=== PATIENT | male | born 1950 | race Two or more races ===

== ENCOUNTER 2018-03-16 10:53 | Outpatient (CLI) | payer OTHER | END 2018-03-16 10:56 | disposition home or self-care (01) | LOC: RAD 10:53 | DX: R14.0 Abdominal distension (gaseous) (principal) ==

== ENCOUNTER 2020-09-10 09:50 | Outpatient (CLI) | payer OTHER | END 2020-09-10 10:09 | disposition home or self-care (01) | LOC: RAD 09:50 | PROVIDERS: ATTEND Ophthalmology | DX: Z98.41 Cataract extraction status, right eye (principal) ==

== ENCOUNTER 2021-07-30 13:19 | Emergency (ER) | payer OTHER ==
[~2021-07-30] VITALS: Ht 177.8 cm; Wt 91.6 kg
[2021-07-30] MEDS ORDERED: ZYLOPRIM100 M1 PO (13:31)
[2021-07-30] MEDS ORDERED: FENOFIBRATE150 MG PO (13:32)
[2021-07-30] MEDS ORDERED: SIMETHICONE80 MG (13:32)
[2021-07-30] MEDS ORDERED: NORFLEX100MG PO (13:32)
[2021-07-30] MEDS ORDERED: TOPROL XL100 M1 PO (13:32)
[2021-07-30] MEDS ORDERED: TRAMADOL HCL50 MG PO (13:32)
[2021-07-30] MEDS ORDERED: JENTADUETO 2.51 EAC2 PO (13:33)
[2021-07-30] MEDS ORDERED: AMLODIPINE-OLM1 EAC3 PO (13:33)
[2021-07-30] MEDS ORDERED: GLIMEPIRIDE2 M1 PO (13:33)
== END 2021-07-30 16:54 | disposition home or self-care (01) ==
LOC: ER 13:19
DX: M54.32 Sciatica, left side (principal); I10 Essential (primary) hypertension; E11.9 Type 2 diabetes mellitus without complications; Z79.899 Other long term (current) drug therapy; E78.00 Pure hypercholesterolemia, unspecified

== ENCOUNTER 2022-02-09 09:45 | Inpatient (IN) | payer OTHER ==
[~2022-02-09] VITALS: Ht 177.8 cm; Wt 90.7 kg
[~2022-02-09 09:45] MED LIST: AMLODIPINE-OLM1 EAC3 PO; FENOFIBRATE150 MG PO; GLIMEPIRIDE2 M1 PO; JENTADUETO 2.51 EAC2 PO; NORFLEX100MG PO; SIMETHICONE80 MG; TOPROL XL100 M1 PO; TRAMADOL HCL50 MG PO; ZYLOPRIM100 M1 PO
[2022-02-14] MEDS ORDERED: ALLOPURINOL300 MG (15:42)
[2022-02-14] MEDS ORDERED: BRIMONIDINE TART5 M1 (15:42)
[2022-02-14] MEDS ORDERED: GABAPENTIN300 M2 (15:42)
[2022-02-14] MEDS ORDERED: DOXAZOSIN MESYLA2 MG (15:42)
[2022-02-14] MEDS ORDERED: AMLODIPINE-BEN1 EAC1 (15:42)
[2022-02-14] MEDS ORDERED: SIMVASTATIN40 MG (15:42)
[2022-02-17] MEDS ORDERED: ULTRACET PO (10:36)
[2022-02-17] MEDS ORDERED: PEPCID AC20 MG PO (10:38)
[2022-02-17] MEDS ORDERED: INTESTINEX680 M1 PO (10:39)
== END 2022-02-17 12:47 | disposition home or self-care (01) | DRG 331 ==
LOC: SURH 02-14 06:05 → O/R 02-14 06:05 → SURG 02-14 07:00 → SURH 02-14 13:42
PROVIDERS: ADMIT Surgery; ATTEND Surgery
PROC: 07BB4ZZ Excision of Mesenteric Lymphatic, Percutaneous Endoscopic Approach (ICD-10-PCS; 2022-02-14)
PROC: 0DBE4ZZ Excision of Large Intestine, Percutaneous Endoscopic Approach (ICD-10-PCS; 2022-02-14)
PROC: 0DTF4ZZ Resection of Right Large Intestine, Percutaneous Endoscopic Approach (ICD-10-PCS; principal; 2022-02-14 07:00)
DX: C18.3 Malignant neoplasm of hepatic flexure (principal); Z20.822 Contact with and (suspected) exposure to COVID-19

== ENCOUNTER → 2022-03-11 07:57 | Outpatient (CLI) | payer OTHER ==
[~2022-03-11 07:57] MED LIST changes: +ALLOPURINOL300 MG; +AMLODIPINE-BEN1 EAC1; +BRIMONIDINE TART5 M1; +DOXAZOSIN MESYLA2 MG; +GABAPENTIN300 M2; +INTESTINEX680 M1 PO; +PEPCID AC20 MG PO; +SIMVASTATIN40 MG; +ULTRACET PO
== END | disposition home or self-care (01) ==
LOC: NUCLEAR 07:57
PROVIDERS: ATTEND Internal Medicine Gastroenterology
DX: C18.9 Malignant neoplasm of colon, unspecified (principal)
CPT/HCPCS: 78816; A9552

== ENCOUNTER 2022-05-19 12:08 | Outpatient (CLI) | payer OTHER | END 2022-05-19 12:10 | disposition home or self-care (01) | LOC: NUCLEAR 12:08 | PROVIDERS: ATTEND Orthopaedic Surgery | DX: M81.0 Age-related osteoporosis without current pathological fracture (principal) ==

== ENCOUNTER → 2022-05-31 08:19 | Outpatient (CLI) | payer OTHER | END | disposition home or self-care (01) | LOC: LAB 08:19 | PROVIDERS: ATTEND Internal Medicine Hematology & Oncology | DX: C18.2 Malignant neoplasm of ascending colon (principal); I10 Essential (primary) hypertension; E11.9 Type 2 diabetes mellitus without complications; E78.2 Mixed hyperlipidemia ==

== ENCOUNTER 2022-06-22 10:34 | Outpatient (CLI) | payer OTHER | END 2022-06-22 10:44 | disposition home or self-care (01) | LOC: NUCLEAR 10:34 | PROVIDERS: ATTEND Internal Medicine | DX: I11.9 Hypertensive heart disease without heart failure (principal); E78.2 Mixed hyperlipidemia; E11.9 Type 2 diabetes mellitus without complications; I50.9 Heart failure, unspecified ==

== ENCOUNTER 2023-02-10 07:51 | Outpatient (CLI) | payer OTHER | END 2023-02-10 07:52 | disposition home or self-care (01) | LOC: NUCLEAR 07:51 | PROVIDERS: ATTEND Internal Medicine Hematology & Oncology | DX: C18.2 Malignant neoplasm of ascending colon (principal); I10 Essential (primary) hypertension; E11.9 Type 2 diabetes mellitus without complications; E78.2 Mixed hyperlipidemia; I25.119 Atherosclerotic heart disease of native coronary artery with unspecified angina pectoris; I71.43 Infrarenal abdominal aortic aneurysm, without rupture; D63.1 Anemia in chronic kidney disease; N18.4 Chronic kidney disease, stage 4 (severe); M54.30 Sciatica, unspecified side | CPT/HCPCS: 78815; A9552 ==

== ENCOUNTER 2023-05-15 08:30 | Outpatient (CLI) | payer OTHER | END 2023-05-15 08:36 | disposition home or self-care (01) | LOC: TOM 08:30 | PROVIDERS: ATTEND Internal Medicine Hematology & Oncology | DX: C18.2 Malignant neoplasm of ascending colon (principal); I10 Essential (primary) hypertension; E11.9 Type 2 diabetes mellitus without complications; E78.2 Mixed hyperlipidemia; I25.119 Atherosclerotic heart disease of native coronary artery with unspecified angina pectoris; I71.43 Infrarenal abdominal aortic aneurysm, without rupture; D63.1 Anemia in chronic kidney disease; N18.4 Chronic kidney disease, stage 4 (severe); M54.30 Sciatica, unspecified side; C77.1 Secondary and unspecified malignant neoplasm of intrathoracic lymph nodes ==

== ENCOUNTER 2023-11-19 13:41 | Inpatient (IN) | payer OTHER ==
[~2023-11-19] VITALS: Ht 177.8 cm; Wt 86.2 kg
--- NOTE | 2023-11-19 13:52 | NUR ---
SE RECIBE PTE ALERTA Y ORIENTADO X3. EN AMBULANCIA, PARAMEDICOS REFIEREN QUE AL RECOGER PTE EN RAZO HOGAR EL MISMO SE ENCONTRABA DESORIENTADO CON DXT EN 40MG/DL. AL MOMENTO DE RECIBIR AMBULANCIA PTE CON DXT EN 111. EL MISMO REFIERE NO SENTIRSE MAREADO. SE MIDEN S/V Y SE UBICA EN OBSERVACION.
[2023-11-19] MEDS ORDERED: ENALAPRILAT DIHYDRATE 1.25 MG/ML VIAL IV ONE ×2 (14:15→14:29)
[2023-11-19 14:23] LABS: HEMATOCRIT 33.9 % (39.0-48.0); HEMOGLOBIN 11.4 g/dL (13-16.00); MEAN CELL VOLUME 91.1 fL (80.0-100.00); MEAN CORPUSCULAR HEMOGLOBIN 30.7 pg (27.00-32.0); MEAN CORPUSCULAR HGB CONC 33.7 g/dl (32.0-36.0); PLATELET COUNT 239 K/uL (150-450); RED BLOOD COUNT 3.72 M/uL (4.00-6.00); RED CELL DISTRIBUTION WIDTH 13.3 % (11.5-14.5)
--- NOTE | 2023-11-19 14:24 | NUR ---
SE ORIENTA A PTE SOBRE TX MEDICO Y EL MISMO REFIERE ENTENDER. SE RECOLECTAN MUESTRAS DE LAB Y SE REALIZA EKG JAYCEE ORDEN MEDICA BAJO MEDIDAS ASEPTICAS.
[2023-11-19 14:40] LABS: ALBUMIN 3.5 gm/dL (3.4-5.0); BILIRUBIN TOTAL 0.23 mg/dL (0.3-1.2); CALCIUM 8.6 mg/dL (8.5-10.1); CREATININE SERUM 3.87 mg/dL (0.70-1.30); GFR 15.41; GLOBULINA 3.5 G/DL (2.4-3.5); POTASSIUM 4.09 mEq/L (3.5-5.1)
[2023-11-19 15:24] LABS: URINE APPEARANCE Clear; URINE BILIRRUBIN Negative (NEGATIVE); URINE BLOOD Negative; URINE COLOR Yellow; URINE GLUCOSE Negative (NEGATIVE); URINE KETONE Negative (NEGATIVE); URINE LEUKOCYTE Negative; URINE NITRATE Negative; URINE UROBILINOGEN 0.2 E.U./dl
[2023-11-19 15:29] LABS: URINE BACTERIA 127.2 uL (0.0-1933); URINE WBC 2.7 uL (0.0-23.2)
[2023-11-19 15:37] LABS: URINE CAST 0.61 uL (0.0-1.40); URINE PROTEIN 100 (NEGATIVE); URINE RBC 0.3 uL (0.0-20.8)
[2023-11-19] MEDS ORDERED: DEXTROSE 50 % IN WATER 0.5 G/ML DISP.SYRIN IV ONE (16:07)
[2023-11-19] MEDS ORDERED: DEXTROSE 50 % IN WATER 0.5 G/ML VIAL IV ONE (16:15)
--- NOTE | 2023-11-19 16:18 | NUR ---
SE CHRISTOPHER DXT A PACIENTE EL CUAL ARROJA 41mg/dL. SE ADMINISTRA HYPERTONICA JAYCEE PROTOCOLO Y ORDEN VERBAL MEDICA DE DE TURNO DRA. HINOJOSA.
[2023-11-19 18:25] VITALS: BP 160/70
[2023-11-19] MEDS ORDERED: AMLODIPINE BESYLATE 10 MG TABLET PO SCH (19:02)
[2023-11-19] MEDS ORDERED: DEXTROSE 5 %-0.45 % SOD CHLORD 1,000 ML IV SCH (19:15)
[2023-11-19] MEDS ORDERED: DEXTROSE 50 % IN WATER 0.5 G/ML DISP.SYRIN IV PRN (19:15)
[2023-11-19] MEDS ORDERED: INSULIN LISPRO 1,000 UNIT/10 ML UNITS SUBCUTANEO PRN (19:15)
[2023-11-19] MEDS ORDERED: ACETAMINOPHEN 500 MG GEL..CAP PO PRN (19:15)
[2023-11-19 22:16] VITALS: BP 178/86; O2SAT 99
[2023-11-19 23:28] LABS: ABG PH 7.388 (7.35-7.45)
[2023-11-19 23:29] LABS: ABG PO2 84.5 mmHg (80-100)
[2023-11-19 23:31] LABS: BASE EXCESS -5.4 mmol/l; BICARBONATE 18.3 mmol/l (23-25); Tco2 19.2 mmol/l; o2 21 %
[2023-11-19 23:32] LABS: allen test SATISFACTORY; puncture site RADIAL LEFT
[2023-11-20] VITALS: BP 157/78; O2SAT 100
[2023-11-20 08:04] VITALS: BP 170/87; O2SAT 98
[2023-11-20 08:42] LABS: MAGNESIUM 2.2 mg/dL (1.8-2.4); PHOSPHOROUS 3.4 mg/dL (2.5-4.9)
[2023-11-20] MEDS ORDERED: FAMOTIDINE/PF 20 MG in 0.9 % SODIUM CHLORIDE 8 ML IV PUSH SCH (09:00)
[2023-11-20 16:00] VITALS: BP 186/86; O2SAT 98
[2023-11-20] MEDS ORDERED: hydrALAZINE HCL 20 MG VIAL IV PRN (19:00)
[2023-11-20 21:01] VITALS: BP 183/97
[2023-11-21] VITALS: BP 163/78; O2SAT 98
[2023-11-21 03:35] VITALS: BP 160/84
[2023-11-21 07:31] LABS: ALBUMIN 3.5 gm/dL (3.4-5.0); BILIRUBIN TOTAL 0.55 mg/dL (0.3-1.2); CALCIUM 9.2 mg/dL (8.5-10.1); CREATININE SERUM 3.2 mg/dL (0.70-1.30); GFR 19.19; GLOBULINA 3.5 G/DL (2.4-3.5); POTASSIUM 4.63 mEq/L (3.5-5.1); T4 FREE 0.93 NG/ML (0.76-1.46); TSH 1.1 uIU/mL (0.358-3.74)
[2023-11-21] MEDS ORDERED: hydrALAZINE HCL 50 MG TABLET PO SCH (09:00)
[2023-11-21 09:36] VITALS: BP 157/73; O2SAT 98
[2023-11-21 16:00] VITALS: BP 189/81; O2SAT 100
[2023-11-22] VITALS: BP 169/82; O2SAT 98
[2023-11-22 08:00] VITALS: BP 151/81; O2SAT 97
[2023-11-22 09:10] LABS: % FREE PSA 56.3 % (.); free psa 0.9 ng/mL; total psa 1.6 ng/mL (0.0-4.0)
[2023-11-22 16:32] VITALS: BP 144/70; O2SAT 100
[2023-11-23 00:54] VITALS: BP 167/92; O2SAT 98
[2023-11-23 07:59] LABS: ALBUMIN 3.5 gm/dL (3.4-5.0); BILIRUBIN TOTAL 0.44 mg/dL (0.3-1.2); CALCIUM 9.3 mg/dL (8.5-10.1); CREATININE SERUM 3.46 mg/dL (0.70-1.30); GFR 17.53; GLOBULINA 3.5 G/DL (2.4-3.5); POTASSIUM 4.43 mEq/L (3.5-5.1)
[2023-11-23] MEDS ORDERED: INSULIN NPH HUM/REG INSULIN HM 1,000 UNIT/10 ML UNITS SUBCUTANEO SCH (08:00)
[2023-11-23 08:03] VITALS: BP 159/83; O2SAT 98
[2023-11-23 16:00] VITALS: BP 169/80; O2SAT 97
[2023-11-23] MEDS ORDERED: DOXAZOSIN MESYLATE 2 MG TABLET PO SCH (21:00)
[2023-11-24 00:45] VITALS: BP 165/85; O2SAT 98
[2023-11-24 08:00] VITALS: BP 145/75; O2SAT 100
[2023-11-24] MEDS ORDERED: DOXAZOSIN MESYLA2 MG PO (11:15)
[2023-11-24] MEDS ORDERED: AMLODIPINE BESY10 MG PO (11:15)
[2023-11-24] MEDS ORDERED: TRADJENTA5 MG PO (11:15)
[2023-11-24] MEDS ORDERED: HYDRALAZINE HCL50 MG PO (11:15)
== END 2023-11-24 13:55 | disposition home or self-care (01) | DRG 683 ==
LOC: ER 13:41 → SEC-K 19:14 → SURH 19:14
PROVIDERS: General Practice; Internal Medicine Nephrology; ADMIT Internal Medicine; ATTEND Internal Medicine
PROC: BT4JZZZ Ultrasonography of Kidneys and Bladder (ICD-10-PCS; principal; 2023-11-20)
DX: N17.9 Acute kidney failure, unspecified (principal); C18.9 Malignant neoplasm of colon, unspecified; E86.0 Dehydration; N18.4 Chronic kidney disease, stage 4 (severe); E11.649 Type 2 diabetes mellitus with hypoglycemia without coma; Z79.4 Long term (current) use of insulin; E11.22 Type 2 diabetes mellitus with diabetic chronic kidney disease; E78.5 Hyperlipidemia, unspecified; I12.9 Hypertensive chronic kidney disease with stage 1 through stage 4 chronic kidney disease, or unspecified chronic kidney disease

== ENCOUNTER 2024-03-01 07:59 | Outpatient (CLI) | payer OTHER ==
[~2024-03-01 07:59] MED LIST changes: +AMLODIPINE BESY10 MG PO; +DOXAZOSIN MESYLA2 MG PO; +HYDRALAZINE HCL50 MG PO; +TRADJENTA5 MG PO
== END 2024-03-01 08:00 | disposition home or self-care (01) ==
LOC: NUCLEAR 07:59
PROVIDERS: ATTEND Internal Medicine Hematology & Oncology
DX: C18.2 Malignant neoplasm of ascending colon (principal); C77.1 Secondary and unspecified malignant neoplasm of intrathoracic lymph nodes
CPT/HCPCS: 78816; A9552

== ENCOUNTER 2024-10-29 20:58 | Emergency (ER) | payer OTHER ==
[~2024-10-29] VITALS: Ht 177.8 cm; Wt 79.4 kg
[2024-10-29] MEDS ORDERED: AVAPRO150 MG PO (21:13)
[2024-10-29] MEDS ORDERED: CARDURA1 MG PO (21:13)
[2024-10-29] MEDS ORDERED: TOPROL XL25 M1 PO (21:13)
[2024-10-29] MEDS ORDERED: 0.9 % SODIUM CHLORIDE 1,000 ML IV STA (22:03)
[2024-10-29 23:12] LABS: BASO % 0.4 % (0.1-1.2); EOS # 0.02 (0.04-0.54); EOS % 0.1 % (0.7-7.0); LYMPH # 0.70 (1.18-3.74); LYMPH % 5.1 % (19.3-53.1); MEAN PLATELET VOLUME 10.20 fl (9.4-12.4); MONO # 1.23 (0.24-0.82); MONO % 8.9 % (4.7-12.5); NEUT # 11.74 (1.56-6.13); NEUT % 85.1 % (34.0-71.1); RED CELL DISTRIBUTION WIDTH 12.6 % (11.6-14.4)
[2024-10-29] MEDS ORDERED: CEFTRIAXONE SODIUM 2,000 MG VIAL IV STA (23:24)
[2024-10-29] MEDS ORDERED: CEFTRIAXONE SODIUM 2,000 MG VIAL ONE (23:30)
[2024-10-29 23:33] LABS: ALT/SGPT 63.0 U/L (12-78); AST/SGOT 89.0 U/L (15-37); BILIRUBIN TOTAL 0.8 mg/dL (0.3-1.2); BUN CREA RATIO 15.0 (7.0-25.0); CREATININE SERUM 3.01 mg/dL (0.70-1.30); GFR 20.54; GLOBULINA 5.0 G/DL (2.4-3.5); GLUCOSE FASTING 166.0 mg/dL (65-100); OSMOLALITY SERUM 289.0 MOSM/KG (275-295); PROSTATIC SPECIFIC ANTIGEN 2.75 NG/ML (0.010-4.00)
[2024-10-30 00:14] LABS: URINE APPEARANCE Clear; URINE BILIRRUBIN Negative (NEGATIVE); URINE BLOOD Negative; URINE COLOR Yellow; URINE GLUCOSE Negative (NEGATIVE); URINE KETONE Negative (NEGATIVE); URINE LEUKOCYTE Negative; URINE NITRATE Negative; URINE UROBILINOGEN 1.0 E.U./dl
[2024-10-30 00:17] LABS: URINE BACTERIA 98.3 uL (0.0-1933); URINE EPITHELIAL CELLS 5.8 uL (0.0-38.8); URINE RBC 2.3 uL (0.0-20.8); URINE WBC 3.8 uL (0.0-23.2)
[2024-10-30 01:06] LABS: URINE CAST 1.31 uL (0.0-1.40); URINE PROTEIN 300 (NEGATIVE)
[2024-10-30 03:11] LABS: BASO % 0.3 % (0.1-1.2); EOS # 0.02 (0.04-0.54); EOS % 0.1 % (0.7-7.0); LYMPH # 1.29 (1.18-3.74); LYMPH % 9.2 % (19.3-53.1); MEAN PLATELET VOLUME 10.00 fl (9.4-12.4); MONO # 1.26 (0.24-0.82); MONO % 9.0 % (4.7-12.5); NEUT # 11.34 (1.56-6.13); NEUT % 81.0 % (34.0-71.1); RED CELL DISTRIBUTION WIDTH 12.6 % (11.6-14.4)
[2024-10-30 03:35] LABS: ALT/SGPT 60.0 U/L (12-78); AST/SGOT 80.0 U/L (15-37); BILIRUBIN TOTAL 0.51 mg/dL (0.3-1.2); BUN CREA RATIO 15.0 (7.0-25.0); CREATININE SERUM 2.95 mg/dL (0.70-1.30); GFR 21.02; GLOBULINA 4.6 G/DL (2.4-3.5); GLUCOSE FASTING 148.0 mg/dL (65-100); OSMOLALITY SERUM 294.0 MOSM/KG (275-295)
[2024-10-30] MEDS ORDERED: INTEGRA PLUS C1 EACH PO (05:35)
== END 2024-10-30 05:42 ==
LOC: ER 20:58
PROVIDERS: General Practice
DX: E86.0 Dehydration (principal); R53.1 Weakness; I10 Essential (primary) hypertension; E11.9 Type 2 diabetes mellitus without complications
CPT/HCPCS: 36415; 96365; 96366; 99282; J0696; J7030

== ENCOUNTER 2024-11-21 07:32 | Outpatient (CLI) | payer OTHER ==
[~2024-11-21 07:32] MED LIST changes: +AVAPRO150 MG PO; +CARDURA1 MG PO; +INTEGRA PLUS C1 EACH PO; +TOPROL XL25 M1 PO
== END 2024-11-21 07:33 | disposition home or self-care (01) ==
LOC: NUCLEAR 07:32
PROVIDERS: ATTEND Internal Medicine Hematology & Oncology
DX: C18.2 Malignant neoplasm of ascending colon (principal); C77.1 Secondary and unspecified malignant neoplasm of intrathoracic lymph nodes
CPT/HCPCS: 78816; A9552

== ENCOUNTER 2024-11-27 10:03 | Emergency (ER) | payer OTHER ==
[~2024-11-27] VITALS: Ht 167.6 cm; Wt 65.8 kg
[2024-11-27 10:21] VITALS: BP 164/86; O2SAT 98
[2024-11-27] MEDS ORDERED: 0.9 % SODIUM CHLORIDE 1,000 ML IV SCH (11:00)
[2024-11-27 11:19] LABS: BASO % 0.4 % (0.1-1.2); EOS # 0.01 (0.04-0.54); EOS % 0.1 % (0.7-7.0); LYMPH # 0.44 (1.18-3.74); LYMPH % 3.2 % (19.3-53.1); MEAN PLATELET VOLUME 9.90 fl (9.4-12.4); MONO # 0.81 (0.24-0.82); MONO % 5.8 % (4.7-12.5); NEUT # 12.58 (1.56-6.13); NEUT % 90.0 % (34.0-71.1); RED CELL DISTRIBUTION WIDTH 14.4 % (11.6-14.4)
[2024-11-27 11:57] LABS: ALT/SGPT 83.0 U/L (12-78); AST/SGOT 83.0 U/L (15-37); BILIRUBIN TOTAL 0.4 mg/dL (0.3-1.2); BILIRUBIN,CONJUGATED 0.21 mg/dL (0.0-0.2); BUN CREA RATIO 18.0 (7.0-25.0); CREATININE SERUM 3.1 mg/dL (0.70-1.30); GFR 19.85; GLOBULINA 5.2 G/DL (2.4-3.5); GLUCOSE FASTING 183.0 mg/dL (65-100); OSMOLALITY SERUM 295.0 MOSM/KG (275-295)
[2024-11-27 11:59] LABS: COVID-19 AG NEGATIVE (NEGATIVE)
[2024-11-27] MEDS ORDERED: KETOROLAC TROMETHAMINE 30 MG VIAL ONE (14:21)
[2024-11-27] MEDS ORDERED: KETOROLAC TROMETHAMINE 30 MG VIAL IV ONE (14:30)
== END 2024-11-27 14:45 | disposition home or self-care (01) ==
LOC: ER 10:03
PROVIDERS: General Practice
DX: R10.9 Unspecified abdominal pain (principal); R53.1 Weakness; Z20.822 Contact with and (suspected) exposure to COVID-19
CPT/HCPCS: 36415; 96365; 96366; 99282; J1885; J7030

== ENCOUNTER 2024-11-28 14:08 | Inpatient (IN) | payer OTHER ==
[~2024-11-28] VITALS: Ht 152.4 cm; Wt 78.0 kg
[2024-11-28] MEDS ORDERED: 0.9 % SODIUM CHLORIDE 1,000 ML IV SCH ×2 (15:45→18:15)
[2024-11-28 16:21] LABS: BASO % 0.4 % (0.1-1.2); EOS # 0.08 (0.04-0.54); EOS % 0.6 % (0.7-7.0); LYMPH # 0.91 (1.18-3.74); LYMPH % 6.6 % (19.3-53.1); MEAN PLATELET VOLUME 10.00 fl (9.4-12.4); MONO # 0.94 (0.24-0.82); MONO % 6.9 % (4.7-12.5); NEUT # 11.64 (1.56-6.13); NEUT % 84.9 % (34.0-71.1); RED CELL DISTRIBUTION WIDTH 14.7 % (11.6-14.4)
[2024-11-28 16:41] LABS: INR 1.2
[2024-11-28 17:00] LABS: ALT/SGPT 78.0 U/L (12-78); AST/SGOT 99.0 U/L (15-37); BILIRUBIN TOTAL 0.36 mg/dL (0.3-1.2); BUN CREA RATIO 17.0 (7.0-25.0); CREATININE SERUM 3.59 mg/dL (0.70-1.30); GFR 16.76; GLOBULINA 5.3 G/DL (2.4-3.5); GLUCOSE FASTING 133.0 mg/dL (65-100); OSMOLALITY SERUM 296.0 MOSM/KG (275-295)
[2024-11-28 17:36] LABS: URINE APPEARANCE Clear; URINE BACTERIA 139.1 uL (0.0-1933); URINE BILIRRUBIN Negative (NEGATIVE); URINE BLOOD Negative; URINE CAST 1.46 uL (0.0-1.40); URINE COLOR Yellow; URINE EPITHELIAL CELLS 13.9 uL (0.0-38.8); URINE GLUCOSE Negative (NEGATIVE); URINE KETONE Negative (NEGATIVE); URINE LEUKOCYTE Negative; URINE NITRATE Negative; URINE UROBILINOGEN 0.2 E.U./dl; URINE WBC 27.8 uL (0.0-23.2)
[2024-11-28 17:47] LABS: URINE PROTEIN 300 (NEGATIVE); URINE RBC 1.7 uL (0.0-20.8)
[2024-11-28] MEDS ORDERED: ACETAMINOPHEN 500 MG GEL..CAP PO PRN (18:45)
[2024-11-28] MEDS ORDERED: DEXTROSE 50 % IN WATER 0.5 G/ML DISP.SYRIN IV PRN (18:45)
[2024-11-28] MEDS ORDERED: ONDANSETRON HCL 4 MG in 0.9 % SODIUM CHLORIDE 50 ML IV PRN (18:45)
[2024-11-28] MEDS ORDERED: INSULIN LISPRO 1,000 UNIT/10 ML UNITS SUBCUTANEO PRN (18:45)
[2024-11-28 18:54] VITALS: BP 153/80
[2024-11-28 21:57] VITALS: BP 191/82; O2SAT 100
[2024-11-28 22:59] VITALS: BP 140/60
[2024-11-29] VITALS (8 sets, daily range): BP systolic 140–180; BP diastolic 77–81; O2SAT 97–98
[2024-11-29] MEDS ORDERED: hydrALAZINE HCL 20 MG VIAL IV PRN (08:45)
[2024-11-29] MEDS ORDERED: METOPROLOL SUCCINATE 25 MG TAB.SR.24H PO SCH (09:00)
[2024-11-29] MEDS ORDERED: IRBESARTAN 150 MG TABLET PO SCH (09:00)
[2024-11-29] MEDS ORDERED: FAMOTIDINE/PF 20 MG in 0.9 % SODIUM CHLORIDE 8 ML IV PUSH SCH (09:00)
[2024-11-29] MEDS ORDERED: Cyanocobalamin/Mecobalamin 1 TAB.SL SL NR (10:00)
[2024-11-29] MEDS ORDERED: HEPARIN SODIUM,PORCINE 1,000 UNITS/ML VIAL IV SCH (10:45)
[2024-11-29] MEDS ORDERED: HEPARIN SODIUM,PORCINE 1,000 UNITS/ML VIAL SPEPROC ONE (10:45)
[2024-11-29] MEDS ORDERED: SOD FERRIC GLUC COMPLX/SUCROSE 62.5 MG/5 ML AMPUL IV SCH (12:00)
[2024-11-29] MEDS ORDERED: DOXAZOSIN MESYLATE 2 MG TABLET PO SCH (17:00)
[2024-11-29] MEDS ORDERED: INSULIN LISPRO 1,000 UNIT/10 ML UNITS SUBCUTANEO PRN (20:45)
[2024-11-30 02:14] VITALS: BP 189/89; O2SAT 98
[2024-11-30 08:29] VITALS: BP 171/76; O2SAT 97
[2024-11-30] MEDS ORDERED: Cyanocobalamin/Mecobalamin 1 TAB.SL SL SCH (09:00)
[2024-11-30] MEDS ORDERED: DOXAZOSIN MESYLATE 2 MG TABLET PO SCH (17:00)
[2024-11-30 17:46] VITALS: BP 125/71
[2024-12-01 02:27] LABS: BASO % 0.2 % (0.1-1.2); EOS # 0.13 (0.04-0.54); EOS % 0.8 % (0.7-7.0); LYMPH # 1.11 (1.18-3.74); LYMPH % 6.6 % (19.3-53.1); MEAN PLATELET VOLUME 10.40 fl (9.4-12.4); MONO # 1.36 (0.24-0.82); MONO % 8.1 % (4.7-12.5); NEUT # 13.89 (1.56-6.13); NEUT % 83.3 % (34.0-71.1); RED CELL DISTRIBUTION WIDTH 14.5 % (11.6-14.4)
[2024-12-01 02:42] VITALS: BP 178/88; O2SAT 98
[2024-12-01 03:43] LABS: ALT/SGPT 70.0 U/L (12-78); AST/SGOT 84.0 U/L (15-37); BILIRUBIN TOTAL 0.82 mg/dL (0.3-1.2); BUN CREA RATIO 21.0 (7.0-25.0); CREATININE SERUM 2.88 mg/dL (0.70-1.30); GFR 21.61; GLOBULINA 4.4 G/DL (2.4-3.5); GLUCOSE FASTING 93.0 mg/dL (65-100); OSMOLALITY SERUM 300.0 MOSM/KG (275-295)
[2024-12-01 09:01] VITALS: BP 123/71
[2024-12-01 18:18] VITALS: BP 173/75; O2SAT 92
[2024-12-02 02:58] VITALS: BP 196/98; O2SAT 98
[2024-12-02 08:35] VITALS: BP 180/85
[2024-12-02] MEDS ORDERED: IRBESARTAN 150 MG TABLET PO SCH (15:56)
[2024-12-02 16:00] VITALS: BP 140/90; O2SAT 18
[2024-12-02] MEDS ORDERED: BENZONATATE 100 MG CAPSULE PO SCH (17:00)
[2024-12-02] MEDS ORDERED: MULTIVIT INFUSN,ADULT 4,VIT K 10 ML VIAL IV SCH (17:00)
[2024-12-02] MEDS ORDERED: fentaNYL CITRATE 50 MCG/ML AMPUL IV PUSH ONE (17:00)
[2024-12-02] MEDS ORDERED: MIDAZOLAM HCL 2 MG/2 ML VIAL IV PUSH ONE (17:00)
[2024-12-02] MEDS ORDERED: GUAIFENESIN/DEXTROMETHORPHAN 100MG/10ML BLIST.PACK PO SCH (18:00)
[2024-12-02] MEDS ORDERED: DOXAZOSIN MESYLATE 4 MG TABLET PO SCH (21:00)
[2024-12-03 01:58] VITALS: BP 170/88; O2SAT 97
[2024-12-03 08:59] VITALS: BP 178/75; O2SAT 94
[2024-12-03] MEDS ORDERED: METOPROLOL SUCCINATE 25 MG TAB.SR.24H PO SCH (09:00)
[2024-12-03] MEDS ORDERED: METOPROLOL SUCCINATE 50 MG TAB.SR.24H PO SCH (09:00)
[2024-12-03 19:07] VITALS: BP 160/84; O2SAT 98
[2024-12-04 01:09] VITALS: BP 170/84; O2SAT 98
[2024-12-04 03:00] VITALS: BP 160/79; O2SAT 98
[2024-12-04 07:16] LABS: BASO % 0.3 % (0.1-1.2); EOS # 0.01 (0.04-0.54); EOS % 0.0 % (0.7-7.0); LYMPH # 1.00 (1.18-3.74); LYMPH % 3.0 % (19.3-53.1); MEAN PLATELET VOLUME 10.60 fl (9.4-12.4); MONO # 1.37 (0.24-0.82); MONO % 4.2 % (4.7-12.5); NEUT # 29.82 (1.56-6.13); NEUT % 90.8 % (34.0-71.1); RED CELL DISTRIBUTION WIDTH 15.9 % (11.6-14.4)
[2024-12-04 07:32] LABS: ALT/SGPT 82.0 U/L (12-78); AST/SGOT 294.0 U/L (15-37); BILIRUBIN TOTAL 0.43 mg/dL (0.3-1.2); BUN CREA RATIO 17.0 (7.0-25.0); CREATININE SERUM 2.72 mg/dL (0.70-1.30); GFR 23.08; GLOBULINA 3.9 G/DL (2.4-3.5); GLUCOSE FASTING 140.0 mg/dL (65-100); OSMOLALITY SERUM 301.0 MOSM/KG (275-295)
[2024-12-04 08:06] VITALS: BP 162/75
[2024-12-04] MEDS ORDERED: FAMOTIDINE/PF 20 MG/2 ML VIAL ONE (08:34)
[2024-12-04] MEDS ORDERED: MEROPENEM 500 MG in 0.9 % SODIUM CHLORIDE 50 ML IV SCH (09:00)
[2024-12-04] MEDS ORDERED: LINEZOLID IN DEXTROSE 5% 600 MG/300 ML PIGGYBAG IV NR (12:00)
[2024-12-04] MEDS ORDERED: LACTOBACILLUS ACIDOPHILUS 1 CAP CAP PO SCH (17:00)
[2024-12-04] MEDS ORDERED: AMINO ACIDS/PROTEIN HYDROLYS 30 ML BLIST.PACK PO SCH (17:00)
[2024-12-04 17:18] VITALS: BP 165/75
[2024-12-04] MEDS ORDERED: LINEZOLID IN DEXTROSE 5% 600 MG/300 ML PIGGYBAG IV SCH (21:00)
[2024-12-05 02:14] VITALS: BP 160/86; O2SAT 95
[2024-12-05 08:40] VITALS: BP 167/79
[2024-12-05 17:46] VITALS: BP 167/87; O2SAT 99
[2024-12-06 04:40] VITALS: BP 151/71; O2SAT 98
[2024-12-06 07:42] LABS: ALT/SGPT 56.0 U/L (12-78); AST/SGOT 107.0 U/L (15-37); BILIRUBIN TOTAL 0.76 mg/dL (0.3-1.2); BUN CREA RATIO 21.0 (7.0-25.0); CREATININE SERUM 2.64 mg/dL (0.70-1.30); GFR 23.89; GLOBULINA 4.1 G/DL (2.4-3.5); GLUCOSE FASTING 98.0 mg/dL (65-100); OSMOLALITY SERUM 299.0 MOSM/KG (275-295)
[2024-12-06] MEDS ORDERED: IRBESARTAN 300 MG TABLET PO SCH ×2 (09:00→17:00)
[2024-12-06] MEDS ORDERED: METOPROLOL SUCCINATE 100 MG TAB.SR.24H PO SCH (09:00)
[2024-12-06 10:03] VITALS: BP 155/62; O2SAT 100
[2024-12-06 12:37] LABS: BASO % 0.2 % (0.1-1.2); EOS # 0.05 (0.04-0.54); EOS % 0.2 % (0.7-7.0); LYMPH # 0.70 (1.18-3.74); LYMPH % 3.2 % (19.3-53.1); MEAN PLATELET VOLUME 10.70 fl (9.4-12.4); MONO # 0.93 (0.24-0.82); MONO % 4.3 % (4.7-12.5); NEUT # 19.77 (1.56-6.13); NEUT % 90.9 % (34.0-71.1); RED CELL DISTRIBUTION WIDTH 16.5 % (11.6-14.4)
[2024-12-06 12:44] LABS: ERYTHROCYTE SEDIMENTATION RATE > 130 mm/hr (0-20)
[2024-12-06] MEDS ORDERED: SODIUM POLYSTYRENE SULFONATE 30G/8 TSP PO SCH (13:00)
[2024-12-06] MEDS ORDERED: IPRATROPIUM BROMIDE 0.5 MG/2.5 ML AMPUL.NEB IH SCH (17:14)
[2024-12-06] MEDS ORDERED: LEVALBUTEROL HCL 0.63 MG/3 ML SOLUTION IH SCH (17:14)
[2024-12-06 18:28] VITALS: BP 158/47
[2024-12-06] MEDS ORDERED: DOXAZOSIN MESYLATE 4 MG TABLET PO SCH (21:00)
[2024-12-07 02:16] VITALS: BP 174/88; O2SAT 97
[2024-12-07 09:43] VITALS: BP 170/70
[2024-12-07 18:21] VITALS: BP 160/83; O2SAT 98
[2024-12-08 02:05] VITALS: BP 168/80; O2SAT 97
[2024-12-08 08:06] VITALS: BP 180/84
[2024-12-08 08:14] LABS: BASO % 0.3 % (0.1-1.2); EOS # 0.09 (0.04-0.54); EOS % 0.5 % (0.7-7.0); LYMPH # 0.84 (1.18-3.74); LYMPH % 4.4 % (19.3-53.1); MEAN PLATELET VOLUME 11.70 fl (9.4-12.4); MONO # 1.41 (0.24-0.82); MONO % 7.4 % (4.7-12.5); NEUT # 15.92 (1.56-6.13); NEUT % 83.8 % (34.0-71.1); RED CELL DISTRIBUTION WIDTH 16.3 % (11.6-14.4)
[2024-12-08 08:53] LABS: ALT/SGPT 35.0 U/L (12-78); AST/SGOT 50.0 U/L (15-37); BILIRUBIN TOTAL 0.72 mg/dL (0.3-1.2); BUN CREA RATIO 20.0 (7.0-25.0); CREATININE SERUM 2.68 mg/dL (0.70-1.30); GFR 23.48; GLOBULINA 4.3 G/DL (2.4-3.5); GLUCOSE FASTING 135.0 mg/dL (65-100); OSMOLALITY SERUM 302.0 MOSM/KG (275-295)
[2024-12-08 09:16] LABS: ERYTHROCYTE SEDIMENTATION RATE > 130 mm/hr (0-20)
[2024-12-08 10:04] LABS: BAND MAN 19.0 %; BASOPHIL MAN 0.0 %; EOSINOPHIL MAN 0.0 %; LYMPHOCYTE MAN 8.0 %; METAMYELOCYTE 1.0 %; MONOCYTE MAN 6.0 %; NEUTROPHILS MAN 60.0 %
[2024-12-08 18:49] VITALS: BP 160/84; O2SAT 100
[2024-12-09 02:09] VITALS: BP 188/90; O2SAT 97
[2024-12-09 08:00] VITALS: BP 160/78
[2024-12-09 18:55] VITALS: BP 179/80
[2024-12-09] MEDS ORDERED: LINEZOLID 600 MG TABLET PO SCH (21:00)
[2024-12-10 02:18] VITALS: BP 203/84; O2SAT 96
[2024-12-10 06:08] VITALS: BP 200/100; O2SAT 100
[2024-12-10 08:29] VITALS: BP 164/80; O2SAT 98
[2024-12-10 16:15] VITALS: BP 181/83; O2SAT 98
[2024-12-11 03:09] VITALS: BP 197/92; O2SAT 97
[2024-12-11 06:11] LABS: BASO % 0.4 % (0.1-1.2); EOS # 0.15 (0.04-0.54); EOS % 0.8 % (0.7-7.0); LYMPH # 1.16 (1.18-3.74); LYMPH % 6.2 % (19.3-53.1); MEAN PLATELET VOLUME 11.70 fl (9.4-12.4); MONO # 1.42 (0.24-0.82); MONO % 7.6 % (4.7-12.5); NEUT # 15.09 (1.56-6.13); NEUT % 80.4 % (34.0-71.1); RED CELL DISTRIBUTION WIDTH 16.5 % (11.6-14.4)
[2024-12-11 07:02] LABS: BUN CREA RATIO 24.0 (7.0-25.0); CREATININE SERUM 2.33 mg/dL (0.70-1.30); GFR 27.6; GLUCOSE FASTING 126.0 mg/dL (65-100); OSMOLALITY SERUM 303.0 MOSM/KG (275-295)
[2024-12-11 07:47] LABS: BAND MAN 11.0 %; EOSINOPHIL MAN 1.0 %; LYMPHOCYTE MAN 6.0 %; MONOCYTE MAN 7.0 %; NEUTROPHILS MAN 75.0 %
[2024-12-11] MEDS ORDERED: DOXAZOSIN MESYLATE 8 MG TABLET PO SCH (09:00)
[2024-12-11 09:35] VITALS: BP 169/85
[2024-12-11] MEDS ORDERED: FLUCONAZOLE IN NACL,ISO-OSM 200 MG/100 ML PIGGYBAG IV STA (09:36)
[2024-12-11 19:14] VITALS: BP 160/86; O2SAT 97
[2024-12-11] MEDS ORDERED: POTASSIUM BICARBONATE/CIT AC 25 MEQ TABLET.EFF PO SCH (20:00)
[2024-12-11] MEDS ORDERED: POTASSIUM BICARBONATE/CIT AC 25 MEQ TABLET.EFF PO ONE (20:16)
[2024-12-12 03:26] VITALS: BP 150/66; O2SAT 98
[2024-12-12 08:53] VITALS: BP 183/85
[2024-12-12] MEDS ORDERED: FLUCONAZOLE IN NACL,ISO-OSM 2 MG/ML ML IV SCH (09:00)
[2024-12-12] MEDS ORDERED: POTASSIUM BICARBONATE/CIT AC 25 MEQ TABLET.EFF PO NR (12:00)
[2024-12-12 12:07] LABS: URINE APPEARANCE Clear; URINE BILIRRUBIN Negative (NEGATIVE); URINE BLOOD Negative; URINE COLOR Yellow; URINE GLUCOSE Negative (NEGATIVE); URINE KETONE Negative (NEGATIVE); URINE LEUKOCYTE Negative; URINE NITRATE Negative; URINE UROBILINOGEN 0.2 E.U./dl
[2024-12-12 12:12] LABS: URINE BACTERIA 20.3 uL (0.0-1933); URINE EPITHELIAL CELLS 3.5 uL (0.0-38.8); URINE RBC 66.7 uL (0.0-20.8); URINE WBC 17.2 uL (0.0-23.2)
[2024-12-12 12:27] LABS: URINE CAST 0.29 uL (0.0-1.40); URINE PROTEIN 100 (NEGATIVE); URINE YEAST MODERATE /hpf
[2024-12-12 18:34] VITALS: BP 183/88
[2024-12-13 03:43] VITALS: BP 170/80; O2SAT 98
[2024-12-13 06:44] LABS: BASO % 0.6 % (0.1-1.2); EOS # 0.14 (0.04-0.54); EOS % 0.7 % (0.7-7.0); LYMPH # 1.09 (1.18-3.74); LYMPH % 5.7 % (19.3-53.1); MEAN PLATELET VOLUME 11.60 fl (9.4-12.4); MONO # 1.19 (0.24-0.82); MONO % 6.2 % (4.7-12.5); NEUT # 16.00 (1.56-6.13); NEUT % 83.0 % (34.0-71.1); RED CELL DISTRIBUTION WIDTH 17.2 % (11.6-14.4)
[2024-12-13 07:37] LABS: BAND MAN 5.0 %; EOSINOPHIL MAN 1.0 %; LYMPHOCYTE MAN 4.0 %; MONOCYTE MAN 5.0 %; NEUTROPHILS MAN 85.0 %
[2024-12-13] MEDS ORDERED: levoFLOXacin IN DEXTROSE 5 % 150 ML IV SCH (09:02)
[2024-12-13] MEDS ORDERED: NIFEDIPINE 30 MG TAB.SA.OSM PO SCH (09:07)
[2024-12-13 09:24] VITALS: BP 194/90; O2SAT 97
[2024-12-13 12:00] VITALS: BP 170/94
[2024-12-13 16:00] VITALS: BP 147/76; O2SAT 98
[2024-12-14 02:53] VITALS: BP 126/62; O2SAT 98
[2024-12-14] MEDS ORDERED: NITROGLYCERIN IN 5 % DEXTROSE 50 MG/250 ML BOTTLE IV ONE (07:30)
[2024-12-14] MEDS ORDERED: NITROGLYCERIN IN 5 % DEXTROSE 50 MG/250 ML KIT IV SCH (07:45)
[2024-12-14] MEDS ORDERED: NITROGLYCERIN IN 5 % DEXTROSE 250 ML IV SCH (08:30)
[2024-12-14 09:34] VITALS: BP 133/67; O2SAT 98
[2024-12-14] MEDS ORDERED: SODIUM CHLORIDE 0.45 % 1,000 ML IV STA (13:02)
[2024-12-14 18:33] VITALS: BP 141/75; O2SAT 96
[2024-12-15 02:29] VITALS: BP 114/63; O2SAT 94
[2024-12-15 10:35] VITALS: BP 138/68; O2SAT 96
[2024-12-15 18:58] VITALS: BP 128/69; O2SAT 95
[2024-12-15 21:23] VITALS: O2SAT 99
[2024-12-16 02:29] VITALS: BP 106/63; O2SAT 94
[2024-12-16 07:09] LABS: ALT/SGPT 29.0 U/L (12-78); AST/SGOT 81.0 U/L (15-37); BILIRUBIN TOTAL 0.57 mg/dL (0.3-1.2); BUN CREA RATIO 25.0 (7.0-25.0); CREATININE SERUM 3.13 mg/dL (0.70-1.30); GFR 19.63; GLOBULINA 3.8 G/DL (2.4-3.5); GLUCOSE FASTING 151.0 mg/dL (65-100); OSMOLALITY SERUM 306.0 MOSM/KG (275-295)
[2024-12-16] MEDS ORDERED: EPOETIN ALFA-EPBX 10,000 UNIT/ML VIAL (Retacrit) SUBCUTANEO SCH (09:00)
[2024-12-16 09:26] VITALS: BP 110/64; O2SAT 95
[2024-12-16 11:12] LABS: BASO % 0.2 % (0.1-1.2); EOS # 0.03 (0.04-0.54); EOS % 0.1 % (0.7-7.0); LYMPH # 0.95 (1.18-3.74); LYMPH % 4.7 % (19.3-53.1); MEAN PLATELET VOLUME 12.20 fl (9.4-12.4); MONO # 1.40 (0.24-0.82); MONO % 7.0 % (4.7-12.5); NEUT # 17.31 (1.56-6.13); NEUT % 86.2 % (34.0-71.1); RED CELL DISTRIBUTION WIDTH 17.8 % (11.6-14.4)
[2024-12-16 16:04] VITALS: BP 92/46
[2024-12-16 16:05] VITALS: BP 92/60
[2024-12-16] MEDS ORDERED: TAMSULOSIN HCL 0.4 MG CAP PO SCH (21:00)
[2024-12-16] MEDS ORDERED: MEROPENEM 500 MG in 0.9 % SODIUM CHLORIDE 50 ML IV SCH (21:00)
[2024-12-16] MEDS ORDERED: DOXAZOSIN MESYLATE 4 MG TABLET PO SCH (21:00)
[2024-12-17 02:32] VITALS: BP 130/61; O2SAT 100
[2024-12-17] MEDS ORDERED: SOD FERRIC GLUC COMPLX/SUCROSE 62.5 MG/5 ML AMPUL IV SCH (09:00)
[2024-12-17 11:03] VITALS: BP 112/62; O2SAT 96
[2024-12-17 16:45] VITALS: BP 123/55
[2024-12-17] MEDS ORDERED: ISOSORBIDE MONONITRATE 30 MG TABLET PO NR (18:30)
[2024-12-18 02:12] VITALS: BP 130/65; O2SAT 96
[2024-12-18 06:47] LABS: BASO % 0.2 % (0.1-1.2); EOS # 0.05 (0.04-0.54); EOS % 0.3 % (0.7-7.0); LYMPH # 0.63 (1.18-3.74); LYMPH % 4.0 % (19.3-53.1); MEAN PLATELET VOLUME 11.70 fl (9.4-12.4); MONO # 0.94 (0.24-0.82); MONO % 6.0 % (4.7-12.5); NEUT # 13.78 (1.56-6.13); NEUT % 87.8 % (34.0-71.1); RED CELL DISTRIBUTION WIDTH 17.7 % (11.6-14.4)
[2024-12-18 07:08] LABS: ERYTHROCYTE SEDIMENTATION RATE > 130 mm/hr (0-20)
[2024-12-18] MEDS ORDERED: ISOSORBIDE MONONITRATE 30 MG TABLET PO SCH (09:00)
[2024-12-18 09:20] VITALS: BP 112/57; O2SAT 95
[2024-12-18] MEDS ORDERED: POLYETHYLENE GLYCOL 3350 17 GM BLIST.PACK PO NR (12:00)
[2024-12-18] MEDS ORDERED: POLYETHYLENE GLYCOL 3350 17 GM BLIST.PACK PO SCH (17:00)
[2024-12-18 17:02] VITALS: BP 129/57
[2024-12-19 03:30] VITALS: BP 120/62; O2SAT 98
[2024-12-19 09:55] VITALS: BP 116/61; O2SAT 97
[2024-12-19 16:40] VITALS: BP 104/53
[2024-12-19] MEDS ORDERED: LINEZOLID IN DEXTROSE 5% 300 ML IV SCH (17:00)
[2024-12-20 03:54] VITALS: BP 96/58
[2024-12-20 06:05] LABS: BASO % 0.2 % (0.1-1.2); EOS # 0.17 (0.04-0.54); EOS % 1.3 % (0.7-7.0); LYMPH # 0.69 (1.18-3.74); LYMPH % 5.4 % (19.3-53.1); MEAN PLATELET VOLUME 12.10 fl (9.4-12.4); MONO # 0.90 (0.24-0.82); MONO % 7.1 % (4.7-12.5); NEUT # 10.73 (1.56-6.13); NEUT % 84.1 % (34.0-71.1); RED CELL DISTRIBUTION WIDTH 17.3 % (11.6-14.4)
[2024-12-20 07:24] LABS: ALT/SGPT 13.0 U/L (12-78); AST/SGOT 38.0 U/L (15-37); BILIRUBIN TOTAL 0.5 mg/dL (0.3-1.2); GFR 9.65; GLOBULINA 3.7 G/DL (2.4-3.5); GLUCOSE FASTING 141.0 mg/dL (65-100)
[2024-12-20 07:50] LABS: BUN CREA RATIO 19.0 (7.0-25.0); CREATININE SERUM 5.79 mg/dL (0.70-1.30); OSMOLALITY SERUM 312.0 MOSM/KG (275-295)
[2024-12-20 10:19] VITALS: BP 108/61; O2SAT 95
[2024-12-20] MEDS ORDERED: AA 4.25%/CAL/LYTES/DEXT 5% 1,000 ML PERIFERAL SCH (17:00)
[2024-12-20 18:12] LABS: CHOL HDL RATIO 11.7 (0-5.0); GLUCOSE FASTING 107.0 mg/dL (65-100); HDL 21.0 mg/dl (40-60); LDL 172.0 mg/dl (0-130); VLDL 53.0 (0-39)
[2024-12-20 18:25] LABS: BUN CREA RATIO 18.0 (7.0-25.0); GFR 9.26; OSMOLALITY SERUM 312.0 MOSM/KG (275-295)
[2024-12-20 18:27] LABS: CREATININE SERUM 6.0 mg/dL (0.70-1.30)
[2024-12-20 18:32] VITALS: BP 142/56
[2024-12-20] MEDS ORDERED: FAT EMULSIONS 250 ML IV SCH (21:00)
[2024-12-21 03:55] VITALS: BP 135/72; O2SAT 95
[2024-12-21 08:45] VITALS: BP 140/76
[2024-12-21 19:03] VITALS: BP 140/80
[2024-12-22 03:39] VITALS: BP 153/77; O2SAT 96
[2024-12-22 08:33] VITALS: BP 133/73
[2024-12-22 19:36] VITALS: BP 147/79
[2024-12-23 02:51] VITALS: BP 158/72; O2SAT 97
[2024-12-23 06:07] LABS: BASO % 0.4 % (0.1-1.2); EOS # 0.19 (0.04-0.54); EOS % 1.2 % (0.7-7.0); LYMPH # 0.82 (1.18-3.74); LYMPH % 5.2 % (19.3-53.1); MEAN PLATELET VOLUME 10.70 fl (9.4-12.4); MONO # 1.00 (0.24-0.82); MONO % 6.4 % (4.7-12.5); NEUT # 13.09 (1.56-6.13); NEUT % 83.9 % (34.0-71.1); RED CELL DISTRIBUTION WIDTH 17.4 % (11.6-14.4)
[2024-12-23 06:43] LABS: INR 1.31
[2024-12-23 07:20] LABS: ALT/SGPT 13.0 U/L (12-78); AST/SGOT 58.0 U/L (15-37); BILIRUBIN TOTAL 0.62 mg/dL (0.3-1.2); BILIRUBIN,CONJUGATED 0.31 mg/dL (0.0-0.2); CHOL HDL RATIO 11.2 (0-5.0); GLUCOSE FASTING 94.0 mg/dL (65-100); HDL 20.0 mg/dl (40-60); LDL 142.0 mg/dl (0-130); VLDL 61.0 (0-39)
[2024-12-23 08:15] LABS: BUN CREA RATIO 22.0 (7.0-25.0); CREATININE SERUM 5.85 mg/dL (0.70-1.30); GFR 9.54; OSMOLALITY SERUM 309.0 MOSM/KG (275-295)
[2024-12-23 09:28] VITALS: BP 155/80; O2SAT 99
[2024-12-23 09:36] LABS: UREA CLEARANCE 5.2 ML/MIN
[2024-12-23] MEDS ORDERED: MEROPENEM 500 MG/VIAL VIAL IV SCH (11:00)
[2024-12-23 17:46] VITALS: BP 148/70
[2024-12-23 22:57] VITALS: BP 140/70
[2024-12-24 02:13] VITALS: BP 160/68; O2SAT 96
[2024-12-24 08:48] VITALS: BP 180/76; O2SAT 96
[2024-12-24 17:51] VITALS: BP 157/69; O2SAT 97
[2024-12-25 03:15] VITALS: BP 157/80; O2SAT 95
[2024-12-25 05:18] LABS: BASO % 0.3 % (0.1-1.2); EOS # 0.14 (0.04-0.54); EOS % 0.8 % (0.7-7.0); LYMPH # 0.53 (1.18-3.74); LYMPH % 2.9 % (19.3-53.1); MEAN PLATELET VOLUME 10.00 fl (9.4-12.4); MONO # 0.82 (0.24-0.82); MONO % 4.5 % (4.7-12.5); NEUT # 16.41 (1.56-6.13); NEUT % 89.7 % (34.0-71.1); RED CELL DISTRIBUTION WIDTH 17.6 % (11.6-14.4)
[2024-12-25 05:41] LABS: ALT/SGPT 11.0 U/L (12-78); AST/SGOT 68.0 U/L (15-37); BILIRUBIN TOTAL 0.8 mg/dL (0.3-1.2); GLOBULINA 4.2 G/DL (2.4-3.5); GLUCOSE FASTING 106.0 mg/dL (65-100)
[2024-12-25 05:59] LABS: BUN CREA RATIO 26.0 (7.0-25.0); GFR 10.88; OSMOLALITY SERUM 315.0 MOSM/KG (275-295)
[2024-12-25 06:01] LABS: CREATININE SERUM 5.22 mg/dL (0.70-1.30)
[2024-12-25 07:00] VITALS: BP 163/72; O2SAT 95
[2024-12-25] MEDS ORDERED: levoFLOXacin IN DEXTROSE 5 % 5 MG/ML PIGGYBAG IV STA (09:00)
[2024-12-25] MEDS ORDERED: MORPHINE SULFATE 2 MG/ML SYRINGE IV PRN (10:15)
[2024-12-25 11:14] LABS: URINE APPEARANCE Cloudy; URINE BILIRRUBIN Negative (NEGATIVE); URINE BLOOD Negative; URINE COLOR Yellow; URINE GLUCOSE Negative (NEGATIVE); URINE KETONE Negative (NEGATIVE); URINE LEUKOCYTE Small; URINE NITRATE Negative; URINE UROBILINOGEN 0.2 E.U./dl
[2024-12-25 11:15] LABS: URINE BACTERIA 548.3 uL (0.0-1933); URINE CAST 3.95 uL (0.0-1.40); URINE EPITHELIAL CELLS 10.7 uL (0.0-38.8); URINE RBC 10.8 uL (0.0-20.8); URINE WBC 215.0 uL (0.0-23.2)
[2024-12-25 11:36] LABS: URINE CRYSTALS FEW /HPF; URINE PROTEIN 100 (NEGATIVE); URINE YEAST FEW /hpf
[2024-12-25 17:34] VITALS: BP 157/68
[2024-12-26 01:55] VITALS: BP 173/70; O2SAT 97
[2024-12-26 05:55] VITALS: BP 107/50; O2SAT 97
[2024-12-26 09:07] VITALS: BP 163/73; O2SAT 97
[2024-12-26 17:34] VITALS: BP 138/69
[2024-12-27 01:52] VITALS: BP 137/73; O2SAT 98
[2024-12-27] MEDS ORDERED: levoFLOXacin IN DEXTROSE 5 % 500MG/100ML PIGGYBAG IV SCH (09:00)
[2024-12-27 09:26] VITALS: BP 126/68; O2SAT 97
[2024-12-27] MEDS ORDERED: DOXAZOSIN MESYLA4 MG PO (17:35)
[2024-12-27] MEDS ORDERED: B Complex PO (17:35)
[2024-12-27] MEDS ORDERED: HYDRALAZINE HCL50 MG PO (17:35)
[2024-12-27] MEDS ORDERED: Procardia Xl 30MG TA PO (17:35)
[2024-12-27] MEDS ORDERED: PROTEINEX-18 LI30 ML PO (17:35)
[2024-12-27] MEDS ORDERED: Neurin-Sl Tablet Sl SL (17:35)
[2024-12-27] MEDS ORDERED: TAMS0.4C PO (17:35)
[2024-12-27] MEDS ORDERED: ISOSORBIDE MONO30 MG PO (17:35)
[2024-12-27] MEDS ORDERED: TOPROL XL100 M1 PO (17:35)
== END 2024-12-27 19:16 | disposition home or self-care (01) | DRG 391 ==
LOC: ER 14:26 → MEDJ 19:29
PROVIDERS: Emergency Medicine; Internal Medicine; Internal Medicine Infectious Disease; Internal Medicine Nephrology; Specialist; ADMIT Internal Medicine; ATTEND Internal Medicine
PROC: BT4JZZZ Ultrasonography of Kidneys and Bladder (ICD-10-PCS; 2024-11-28)
PROC: 30243N1 Transfusion of Nonautologous Red Blood Cells into Central Vein, Percutaneous Approach (ICD-10-PCS; 2024-11-29)
PROC: 0FB03ZX Excision of Liver, Percutaneous Approach, Diagnostic (ICD-10-PCS; 2024-12-03)
PROC: BW24ZZZ Computerized Tomography (CT Scan) of Chest and Abdomen (ICD-10-PCS; 2024-12-04)
PROC: B24BYZZ Ultrasonography of Heart with Aorta using Other Contrast (ICD-10-PCS; 2024-12-05)
PROC: B54DZZZ Ultrasonography of Bilateral Lower Extremity Veins (ICD-10-PCS; 2024-12-07)
PROC: 4A12X4Z Monitoring of Cardiac Electrical Activity, External Approach (ICD-10-PCS; 2024-12-14)
PROC: BW21ZZZ Computerized Tomography (CT Scan) of Abdomen and Pelvis (ICD-10-PCS; principal; 2024-12-19)
PROC: 02HV33Z Insertion of Infusion Device into Superior Vena Cava, Percutaneous Approach (ICD-10-PCS; 2024-12-24)
DX: K57.30 Diverticulosis of large intestine without perforation or abscess without bleeding (principal); A41.9 Sepsis, unspecified organism; J18.9 Pneumonia, unspecified organism; I47.10 Supraventricular tachycardia, unspecified; N17.9 Acute kidney failure, unspecified; C18.9 Malignant neoplasm of colon, unspecified; N39.0 Urinary tract infection, site not specified; B49 Unspecified mycosis; J90 Pleural effusion, not elsewhere classified; K56.609 Unspecified intestinal obstruction, unspecified as to partial versus complete obstruction; C78.7 Secondary malignant neoplasm of liver and intrahepatic bile duct; D72.829 Elevated white blood cell count, unspecified; K57.20 Diverticulitis of large intestine with perforation and abscess without bleeding; E66.01 Morbid (severe) obesity due to excess calories; L98.8 Other specified disorders of the skin and subcutaneous tissue; B95.5 Unspecified streptococcus as the cause of diseases classified elsewhere; D64.9 Anemia, unspecified; E11.9 Type 2 diabetes mellitus without complications; Z79.4 Long term (current) use of insulin; I10 Essential (primary) hypertension; E78.5 Hyperlipidemia, unspecified